=== PATIENT | female | born 1975 | race African-American/Black ===

== ENCOUNTER 2019-07-05 14:43 | Emergency (ER) | payer SELFPAY ==
[~2019-07-05] VITALS: Ht 180.3 cm; Wt 167.8 kg
[2019-07-05 14:56] VITALS: Ht 180.3 cm; Wt 167.8 kg
[2019-07-05 15:18] VITALS: BP 139/87
== END 2019-07-05 15:18 | disposition home or self-care (01) ==
LOC: ED 14:43
DX: R05 Cough (principal); J44.9 Chronic obstructive pulmonary disease, unspecified; Z88.8 Allergy status to other drugs, medicaments and biological substances

== ENCOUNTER 2019-10-12 10:27 | Emergency (ER) | payer SELFPAY ==
[~2019-10-12] VITALS: Ht 180.3 cm; Wt 148.8 kg
[2019-10-12 10:38] VITALS: Ht 180.3 cm; Wt 148.8 kg
[2019-10-12 11:49] VITALS: BP 146/95
== END 2019-10-12 11:49 | disposition home or self-care (01) ==
LOC: ED 10:27
DX: J44.0 Chronic obstructive pulmonary disease with (acute) lower respiratory infection (principal); J20.9 Acute bronchitis, unspecified; Z88.8 Allergy status to other drugs, medicaments and biological substances

== ENCOUNTER 2019-12-07 15:26 | Emergency (ER) | payer MEDICAID ==
[~2019-12-07] VITALS: Ht 180.3 cm; Wt 149.7 kg
[2019-12-07 15:34] VITALS: BP 105/61; Ht 180.3 cm; Wt 149.7 kg
== END 2019-12-07 16:22 | disposition home or self-care (01) ==
LOC: ED 15:26
DX: J44.1 Chronic obstructive pulmonary disease with (acute) exacerbation (principal); F17.210 Nicotine dependence, cigarettes, uncomplicated; Z88.8 Allergy status to other drugs, medicaments and biological substances

== ENCOUNTER 2020-04-20 12:26 | Emergency (ER) | payer SELFPAY ==
[~2020-04-20] VITALS: Ht 180.3 cm; Wt 149.7 kg
[2020-04-20 12:30] VITALS: Ht 180.3 cm; Wt 149.7 kg
[2020-04-20 13:26] VITALS: BP 133/76
== END 2020-04-20 13:25 | disposition home or self-care (01) ==
LOC: ED 12:26
DX: J45.901 Unspecified asthma with (acute) exacerbation (principal)